=== PATIENT | male | born 1965 | race Caucasian/White ===

== ENCOUNTER 2018-01-09 18:20 | Emergency (ER) | payer SELFPAY ==
--- NOTE | 2018-01-09 20:22 | ER Document Report ---
ED Extremity Problem, Lower - General Chief Complaint: Ankle Pain Stated Complaint: FALL/ANKLE PAIN Time Seen by Provider: 01/09/18 19:47 Mode of Arrival: Ambulatory Information source: Patient Notes: 52-year-old male presents to ED for complaint of pain to his left ankle. He states he was at the garden supply getting some soil for some planting when he was walking out of the store he remembers he had forgotten some soil and [employer] states when he turned around the concrete was wet he slipped turning his ankle and then landed on his ankle with all of his weight. He states he came into the emergency room did be sure that it was not broken. Patient is alert oriented respirations regular and unlabored speaking in full sentences and is able to walk with a even steady gait. There is some swelling to the left ankle. He does have full range of motion to the ankle. TRAVEL OUTSIDE OF THE [place] IN LAST 30 DAYS: No - HPI Patient complains to provider of: Injury, Pain Location: Ankle Occurred: This afternoon Where: Outdoors, Public place Onset/Duration: Sudden Quality of pain: Achy, Pressure Severity: Moderate Pain Level: 2 Context: Wearing shoes, Other - Rolled ankle and fell on top of it Recent injury: Yes Associated symptoms: Painful ambulation Exacerbated by: Hanging down, Movement, Walking Relieved by: Elevation, Ice, Rest - Related Data Allergies/Adverse Reactions: No Known Allergies Allergy (Verified 01/09/18 18:21) Past Medical History - General Information source: Patient - Social History Smoking Status: Never Smoker Cigarette use (# per day): No Chew tobacco use (# tins/day): No Smoking Education Provided: No Frequency of alcohol use: Occasional Drug Abuse: None Occupation: [employer] Lives with: Spouse/Significant other Family History: Reviewed & Not Pertinent Patient has suicidal ideation: No Patient has homicidal ideation: No - Past Medical History Cardiac Medical History: Reports: None Pulmonary Medical History: Reports: Hx Pneumonia EENT Medical History: Reports: None Neurological Medical History: Reports: None Endocrine Medical History: Reports: None Renal/ Medical History: Reports: None Malignancy Medical History: Reports None GI Medical History: Reports: None Musculoskeltal Medical History: Reports Other - Laceration to the hand with a saw needed reconstruction surgery to the hand Skin Medical History: Reports None Psychiatric Medical History: Reports: None Traumatic Medical History: Reports: None Infectious Medical History: Reports: None Past Surgical History: Reports: Hx Orthopedic Surgery - R Hand - Immunizations Immunizations up to date: Yes Hx Diphtheria, Pertussis, Tetanus Vaccination: Yes Review of Systems - Review of Systems Constitutional: No symptoms reported EENT: No symptoms reported Cardiovascular: No symptoms reported Respiratory: No symptoms reported Gastrointestinal: No symptoms reported Genitourinary: No symptoms reported Male Genitourinary: No symptoms reported Musculoskeletal: Ankle swelling - Bruising swelling and pain left ankle Skin: No symptoms reported Hematologic/Lymphatic: No symptoms reported Neurological/Psychological: No symptoms reported -: Yes All other systems reviewed and negative Physical Exam - Vital signs Vitals: Temp Pulse Resp BP Pulse Ox 99.0 F 77 17 145/91 H 97 01/09/18 18:32 01/09/18 18:32 01/09/18 18:32 01/09/18 18:32 01/09/18 18:32 Interpretation: Normal - General General appearance: Appears well, Alert - HEENT Head: Normocephalic, Atraumatic Eyes: Normal Pupils: PERRL - Respiratory Respiratory status: No respiratory distress Chest status: Nontender Breath sounds: Normal Chest palpation: Normal - Cardiovascular Rhythm: Regular Heart sounds: Normal auscultation Murmur: No - Abdominal Inspection: Normal Distension: No distension Bowel sounds: Normal Tenderness: Nontender Organomegaly: No organomegaly - Back Back: Normal, Nontender - Extremities General upper extremity: Normal inspection, Nontender, Normal color, Normal ROM , Normal temperature General lower extremity: Normal ROM, Normal temperature, Normal weight bearing. No: Juancarlos's sign Ankle: Tender, Ecchymosis, Edema. No: Limited ROM, Unable to bear weight - Painful ambulation - Neurological Neuro grossly intact: Yes Cognition: Normal Orientation: AAOx4 Julio Coma Scale Eye Opening: Spontaneous [place] Coma Scale Verbal: Oriented Julio Coma Scale Motor: Obeys Commands Julio Coma Scale Total: 15 Speech: Normal Motor strength normal: LUE, RUE, LLE, RLE Sensory: Normal - Psychological Associated symptoms: Normal affect, Normal mood - Skin Skin Temperature: Warm Skin Moisture: Dry Skin Color: Normal Course - Re-evaluation Re-evalutation: 01/09/18 21:10 X-ray was discussed with patient and family. Written report of the x-ray given to patient to follow-up with orthopedics. Patient was treated with a posterior and sugar tong splint as well as crutches. Patient was given ibuprofen and [place] dispense pack in the emergency room for his discomfort. Patient was instructed to elevate and ice his ankle and to call Dr. Reyes in the morning for follow-up. - Vital Signs Vital signs: Temp Pulse Resp BP Pulse Ox 97.5 F 73 17 149/91 H 96 01/09/18 21:18 01/09/18 21:18 01/09/18 18:32 01/09/18 21:18 01/09/18 21:18 - Diagnostic Test Radiology reviewed: Image reviewed, Reports reviewed Procedures - Immobilization Left Ankle Immobilizer type: Crutches, Posterior ankle, Sugar tong Performed by: PCT Post-Proc Neuro Vasc Exam: Normal Alignment checked and good: Yes Discharge - Discharge Clinical Impression: Avulsion fracture of lateral malleolus of left fibula Qualifiers: Encounter type: initial encounter Fracture type: closed Qualified Code(s): S82.62XA - Displaced fracture of lateral malleolus of left fibula, initial encounter for closed fracture Condition: Stable Disposition: HOME, SELF-CARE Additional Instructions: Avulsion Fracture of the Ankle There is a small chip fracture in your ankle. This fracture was caused by stretching the joint ligaments, which pulled off a small piece of bone. This injury is treated much the same as a severe sprain. At first, you should elevate, rest, and apply ice packs to the leg. Often , only an ankle brace or tape is necessary while the chip fracture heals. Sometimes a chip fracture of this type requires a cast or walking boot. The treatment plan may change, depending on how your ankle progresses. Chip fractures usually do not fuse back onto the bone, but rather scar down to the bone surface. You will most likely see this bone fragment on future x-rays. It's important that you follow the treatment program as outlined for now, then follow up for re-evaluation as scheduled. Call the doctor or return at once if pain or swelling becomes severe, or if you develop other unusual symptoms. SPLINT PRECAUTIONS: A splint has been placed. This will protect the area while healing begins. Your problem does NOT normally require a cast. It MUST, however, be held still! Keep the splint on ALL THE TIME until instructed to remove it by the doctor. As you begin to use the area, be careful. You shouldn't do anything which causes discomfort -- you may disturb the injury even with the splint in place. After the initial period of rest and elevation, if splint does not prevent pain when you move, come back. You may require placement of a different splint , or a cast. If there is unexpected severe pain, or numbness, discoloration, or swelling beyond the splint, you should return at once. If you feel that the splint has broken or become loose, come back. USE OF CRUTCHES: The doctor has recommended that you not bear weight at this time. You will need to use crutches. Adjust the crutches so the tops come to about two inches under the armpit while you are standing upright. Use your hands -- not your armpits -- to support your weight. To get into a chair, support yourself with one crutch on the injured side. Hold the chair with the other hand, then lower yourself while putting all your weight on the good leg. Going up stairs is `good leg up, step up, then bring up crutches and bad leg.' Down stairs is `bad leg and crutches down, then bring good leg down.' If you develop numbness or swelling in an arm or hand, you are using the crutches incorrectly. Return if you are having any problems with the crutches. ICE & ELEVATION: Apply ice packs frequently against the painful area. Many different schedules are recommended, such as "20 minutes on, 20 minutes off" or "one hour ice, two hours rest." If you need to work, you may need to go longer between ice treatments. You should plan to have the area ice packed AT LEAST one- fourth of the time. The ice should be applied over the wrap, tape, or splint, or over a layer of cloth -- not directly against the skin. Some ice bags have a built-in cloth and can be put directly on the skin. Your injured part should be elevated as much as possible over the next 48 hours. Try to keep the injury above the level of the heart. Avoid use of the injured area. Elevation and rest will decrease the swelling. USE OF [id number] IBUPROFEN: Ibuprofen (Advil, Nuprin, Medipren, Motrin IB) is a medication for fever and pain control. In addition, it has anti- inflammatory effects which may be beneficial, especially in the treatment of injuries. It's best to take ibuprofen with food. Persons with ulcer disease or allergy to aspirin should notify their physician of this before taking ibuprofen. Ibuprofen can be given every four to six hours, for a total of four doses daily. Age Pain or fever dose Antiinflammatory dose 6-8 yr 200 mg (1 tab) 200 mg (1 tab) 9-11 yr 200 mg (1 tab) 200-400 mg (1-2 tab) 11-14 yr 200-400 mg (1-2 tab) 400 mg (2 tab) 15-adult 400 mg (2 tab) 600 mg (3 tab) FOLLOW-UP CARE: If you have been referred to a physician for follow-up care, call the physician s office for an appointment as you were instructed or within the next two days. If you experience worsening or a significant change in your symptoms, notify the physician immediately or return to the Emergency Department at any time for re-evaluation. Forms: Elevated Blood Pressure, Return to Work Referrals: ROHITH REYES MD [ACTIVE STAFF] - Follow up as needed
--- NOTE | 2018-01-09 20:43 | RADIOLOGY REPORT (SQ) ---
EXAM DESCRIPTION: ANKLE LEFT COMPLETE COMPLETED DATE/TIME: 01/09/2018 8:12 pm REASON FOR STUDY: pain . Patient fell, pain at the whole left ankle. COMPARISON: None. NUMBER OF VIEWS: Three views. TECHNIQUE: AP, lateral, and oblique radiographic images acquired of the left ankle. LIMITATIONS: None. FINDINGS: MINERALIZATION: Normal. BONES: There is a small calcific density at the tip of the lateral malleolus, suggestive of an avulsi on injury. There is no dislocation. The ankle mortise is maintained. There is calcaneal enthesopat hy at the insertion of the Achilles' tendon. JOINTS: Small effusion. SOFT TISSUES: There is soft tissue swelling at the lateral malleolus. No radiopaque foreign body. IMPRESSION: Avulsion injury at the tip of the lateral malleolus with overlying soft tissue swelling and small joint effusion at the left ankle. TECHNICAL DOCUMENTATION: JOB ID: [id number] [employer]- All Rights Reserved Reading location - IP/workstation name: [email or web address]
[2018-01-09] MEDS ORDERED: IBUPROFEN 800 MG TABLET PO ONE (21:06)
[2018-01-09] MEDS ORDERED: HYDROCODONE/ACETAMINOPHEN 5-325 MG (6 TAB/ER DISP) PO PRN (21:07)
[2018-01-09 21:22] VITALS: BP 149/91
== END 2018-01-09 21:26 | disposition home or self-care (01) ==
LOC: ER 18:20
PROC: 2W3RX1Z Immobilization of Left Lower Leg using Splint (ICD-10-PCS; principal; 2018-01-09)
DX: S82.62XA Displaced fracture of lateral malleolus of left fibula, initial encounter for closed fracture (principal); M25.572 Pain in left ankle and joints of left foot; M79.89 Other specified soft tissue disorders; W01.0XXA Fall on same level from slipping, tripping and stumbling without subsequent striking against object, initial encounter; Y92.512 Supermarket, store or market as the place of occurrence of the external cause
CPT/HCPCS: 99283